=== PATIENT | male | born 1990 ===

== ENCOUNTER 2017-07-31 12:13 | Emergency (ER) | payer BC ==
--- NOTE | 2017-07-31 12:15 | ER Report ---
History and Physical Time Seen By MD: 12:30 HPI/ROS CHIEF COMPLAINT: Foot injury HISTORY OF PRESENT ILLNESS: Patient is a 26-year-old male with past medical history for fracture to the left calcaneus. He states that he fell from a staircase landing again on his left heel and is having severe pain and unable to ambulate secondary to pain. He denies any pain to the forefoot. Denies any pain to the ankle or proximal fibula REVIEW OF SYSTEMS: Respiratory: No cough, no dyspnea. Cardiovascular: No chest pain, no palpitations. Gastrointestinal: No vomiting, no abdominal pain. Musculoskeletal: Left heel pain Allergies: Coded Allergies: No Known Drug Allergies (Unverified , 07/31/17) Home Meds Active Scripts Naproxen (NAPROXEN) 375 Mg Tablet, 375 MG PO TID for PAIN, #20 TAB 0 Refills Prov:CARLOS OLIVAREZ MD 07/31/17 Past Medical/Surgical History Prior foot fracture Constitutional Vital Sign - Last 24 Hours 07/31/17 07/31/17 07/31/17 07/31/17 12:17 12:18 12:28 12:30 Temp 98.2 Pulse 88 87 Resp 16 B/P (MAP) 144/80 (101) 144/80 131/70 (90) Pulse Ox 93 93 O2 Delivery Room Air 07/31/17 07/31/17 07/31/17 07/31/17 12:43 12:48 13:03 13:18 Pulse 89 91 91 Pulse Ox 94 95 93 94 07/31/17 13:28 B/P (MAP) 134/75 (94) Physical Exam General appearance: alert no distress Left ankle: There is no significant swelling. There is no obvious deformity to the ankle. There is moderate tenderness to the lateral malleolus. Ankle joint is stable and there is no tenderness over the achilles tendon. The foot is tender at the heel. Patient is unable to ambulate secondary to pain Neurologic exam: The patient has normal sensation distal to the injury. Vascular exam: Normal pulses and capillary refill in the foot [ ] DIFFERENTIAL DIAGNOSIS: After history and physical exam differential diagnosis was considered for foot injury including sprain, fracture, dislocation and soft tissue injury. Medical Decision Making EKG/Imaging Imaging FACILITY: [facility] [place] PATIENT NAME: Alex Ac : 1990 MR: [id number] V: [id number] EXAM DATE: ORDERING PHYSICIAN: CARLOS OLIVAREZ [place]CHNOLOG[place]: [place] [facility] [place] : 1990 Visit/Account:[id number] Date of Sevice: 07/31/2017 FOOT 3 VIEW LEFT Indication: Pain Comparison: None Available Findings: 3 views of the left foot were obtained. No evidence of fracture, dislocation, or acute osseous abnormality of the left foot. There is no focal soft tissue abnormality. No evidence of radiopaque foreign body. IMPRESSION: 1.No acute osseous abnormality of the left foot Report Dictated By: Robby Chamberlain MD at 07/31/2017 1:17 PM Report E-Signed By: Robby Chamberlain MD at 07/31/2017 1:19 PM WSN:[id number] ED Course/Re-evaluation ED Course 07/31/2017 12:52:01 pm plan at this time will be to x-ray the foot and we will give oral pain medication at this time. Decision to Disposition Date: July 31, 2017 Decision to Disposition Time: 13:27 Depart Departure Latest Vital Signs Vital Signs Date Time Temp Pulse Resp B/P (MAP) Pulse Ox O2 Delivery O2 Flow Rate FiO2 07/31/17 13:28 134/75 (94) 07/31/17 13:18 91 94 07/31/17 12:18 98.2 16 Room Air Impression: Primary Impression: Heel pain Condition: Improved Disposition: HOME OR SELF-CARE New Scripts Naproxen (NAPROXEN) 375 Mg Tablet 375 MG PO TID for PAIN, #20 TAB 0 Refills Prov: CARLOS OLIVAREZ MD 07/31/17 Patient Instructions: Foot Contusion (ED) Problem Qualifiers Primary Impression: Heel pain Laterality: left Qualified Codes: M79.672 - Pain in left foot CARLOS OLIVAREZ MD July 31, 2017 12:15
[2017-07-31] MEDS ORDERED: APAP/HYDROCODONE 325/5 TAB PO ONE (12:25)
--- NOTE | 2017-07-31 13:22 | RADIOLOGY IMAGING REPORT ---
[place] [facility] [place] NAME: Alex Ac : 1990 MR: [id number] V: [id number] EXAM DATE: ORDERING PHYSICIAN: CARLOS OLIVAREZ TECHNOLOGIST: Location: [facility] Patient: Alex Ac : 1990 Visit/Account:[id number] Date of Sevice: 07/31/2017 FOOT 3 VIEW LEFT Indication: Pain Comparison: None Available Findings: 3 views of the left foot were obtained. No evidence of fracture, dislocation, or acute osseous abnormality of the left foot. There is no focal soft tissue abnormality. No evidence of radiopaque foreign body. IMPRESSION: 1.No acute osseous abnormality of the left foot Report Dictated By: Robby Chamberlain MD at 07/31/2017 1:17 PM Report E-Signed By: Robby Chamberlain MD at 07/31/2017 1:19 PM WSN:[id number]
[2017-07-31 13:28] VITALS: BP 134/75
[2017-07-31] MEDS ORDERED: NAPR375T44 PO (13:29)
== END 2017-07-31 13:39 | disposition home or self-care (01) ==
LOC: ER 12:21
DX: M79.672 Pain in left foot (principal)
CPT/HCPCS: 99283